=== PATIENT | male | born 1940 | race Caucasian/White ===

== ENCOUNTER 2018-10-25 07:18 | Emergency (ER) | payer MEDICARE, OTHER ==
[~2018-10-25] VITALS: Ht 185.4 cm; Wt 83.9 kg
[2018-10-25 07:20] VITALS: BP 86/54
[2018-10-25 08:00] LABS: Eosinophils # (auto) 0.4 uL; Hemoglobin 13.1 g/dL (13.5-17.5); Lymphocytes # (auto) 1.2 uL; Neutrophils # (auto) 6.3 uL
[2018-10-25 08:02] LABS: Basophils # (auto) 0.1 uL; Basophils % (auto) 0.7 % (0.0-2.0); Eosinophils % (auto) 4.6 % (0.0-7.0); Hematocrit 39.6 % (41.0-53.0); Lymphocytes % (auto) 13.8 % (10.0-50.0); Mean Corpuscular Hemoglobin 33.6 pg (28.0-32.0); Mean Corpuscular Hgb Conc. 33.1 g/dL (32.0-36.0); Mean Corpuscular Volume 101.4 fL (80.0-100.0); Monocytes # (auto) 0.8 uL; Monocytes % (auto) 9.4 % (0.0-12.0); Neutrophils % (auto) 71.5 % (37.0-80.0); Platelet Count (auto) 182 10^3/uL (140-450); Red Cell Distribution Width 16.7 % (11.8-14.3); White Blood Cell 8.7 10^3/uL (4.4-10.8)
[2018-10-25 08:11] LABS: Chloride 107 mmol/L (98-107); Potassium 4.7 mmol/L (3.5-5.1); Sodium 137 mmol/L (136-145)
[2018-10-25 08:14] LABS: Albumin 3.8 g/dL (3.4-5.0); Anion Gap 8 (5-15); Blood Urea Nitrogen 28 mg/dL (7-18); Calcium 8.6 mg/dL (8.5-10.1); Carbon Dioxide 22 mmol/L (21-32); Glucose 101 mg/dL (74-106); Magnesium 2.3 mg/dL (1.6-2.6)
[2018-10-25 08:20] LABS: Alanine Aminotransferase 18 U/L (16-61); Alkaline Phosphatase 76 U/L (45-117); Aspartate Aminotransferase 20 U/L (15-37); BUN/Creatinine Ratio 17.1; Bilirubin, Total 0.5 mg/dL (0.2-1.0); GFR African American 53 mL/min; GFR Non-African American 44 mL/min; Total Protein 7.7 g/dL (6.4-8.2)
[2018-10-25] MEDS ORDERED: NALOXONE HCL 0.4 MG/ML VIAL IV ONE (08:30)
[2018-10-25] MEDS ORDERED: FLUMAZENIL 0.1 MG/ML INJ 10ML MDV IV ONE ×2 (09:03→09:15)
== END 2018-10-25 10:59 | disposition home or self-care (01) ==
LOC: ER 07:21
DX: T50.991A Poisoning by other drugs, medicaments and biological substances, accidental (unintentional), initial encounter (principal); R53.1 Weakness; R42 Dizziness and giddiness; Z95.1 Presence of aortocoronary bypass graft; Z95.0 Presence of cardiac pacemaker; Y92.098 Other place in other non-institutional residence as the place of occurrence of the external cause
CPT/HCPCS: 36415; 70450; 71045; 80053; 83605; 83735; 84484; 85025; 87040; 96374; 96375; 99284; J2310

== ENCOUNTER 2018-12-21 16:48 | Emergency (ER) | payer MEDICARE, OTHER ==
[~2018-12-21] VITALS: Ht 185.4 cm; Wt 74.8 kg
[2018-12-21] MEDS ORDERED: ONDANSETRON HCL 4 MG/2 ML VIAL IV ONE (21:30)
[2018-12-21] MEDS ORDERED: MORPHINE SULFATE 4 MG/ML SYR/VIAL IV ONE (21:30)
[2018-12-21 21:49] LABS: Basophils # (auto) 0 uL; Basophils % (auto) 0.4 % (0.0-2.0); Eosinophils # (auto) 0.2 uL; Eosinophils % (auto) 3.7 % (0.0-7.0); Hematocrit 34.7 % (41.0-53.0); Hemoglobin 11.4 g/dL (13.5-17.5); Lymphocytes # (auto) 0.8 uL; Lymphocytes % (auto) 17.3 % (10.0-50.0); Mean Corpuscular Hemoglobin 32.7 pg (28.0-32.0); Mean Corpuscular Hgb Conc. 32.9 g/dL (32.0-36.0); Mean Corpuscular Volume 99.6 fL (80.0-100.0); Monocytes # (auto) 0.5 uL; Monocytes % (auto) 11.2 % (0.0-12.0); Neutrophils # (auto) 3.2 uL; Neutrophils % (auto) 67.4 % (37.0-80.0); Nucleated Red Blood Cells % 0.2 %; Platelet Count (auto) 83 10^3/uL (140-450); Red Blood Cells 3.49 10^6/uL (4.5-5.90); Red Cell Distribution Width 17.5 % (11.8-14.3); White Blood Cell 4.7 10^3/uL (4.4-10.8)
[2018-12-21 22:04] LABS: Alanine Aminotransferase 16 U/L (16-61); Albumin 3.6 g/dL (3.4-5.0); Anion Gap 9 (5-15); Aspartate Aminotransferase 14 U/L (15-37); BUN/Creatinine Ratio 18.8; Blood Urea Nitrogen 22 mg/dL (7-18); Calcium 8.3 mg/dL (8.5-10.1); Carbon Dioxide 23 mmol/L (21-32); Chloride 110 mmol/L (98-107); GFR African American 78 mL/min; GFR Non-African American 64 mL/min; Glucose 116 mg/dL (74-106); Potassium 3.6 mmol/L (3.5-5.1); Sodium 142 mmol/L (136-145)
[2018-12-21 22:07] LABS: Alkaline Phosphatase 106 U/L (45-117); Bilirubin, Total 0.5 mg/dL (0.2-1.0); Total Protein 7.5 g/dL (6.4-8.2)
[2018-12-22] MEDS ORDERED: MORPHINE SULF INJ 2 MG/ML SYRINGE 1ML IV ONE (03:00)
[2018-12-22 06:28] VITALS: BP 128/60
== END 2018-12-22 06:35 | disposition short-term general hospital (02) ==
LOC: ER 16:48
DX: S32.049A Unspecified fracture of fourth lumbar vertebra, initial encounter for closed fracture (principal); S32.039A Unspecified fracture of third lumbar vertebra, initial encounter for closed fracture; I25.2 Old myocardial infarction; Z95.1 Presence of aortocoronary bypass graft; Z95.0 Presence of cardiac pacemaker; X58.XXXA Exposure to other specified factors, initial encounter; Y93.89 Activity, other specified; Y99.8 Other external cause status; Y92.89 Other specified places as the place of occurrence of the external cause
CPT/HCPCS: 36415; 72070; 72100; 72128; 72131; 80053; 85025; 96374; 96375; 96376; 99285; J2270; J2405

== ENCOUNTER 2019-01-08 15:44 | Emergency (ER) | payer MEDICARE, OTHER ==
[~2019-01-08] VITALS: Ht 185.4 cm; Wt 79.4 kg
[2019-01-08] MEDS ORDERED: MORPHINE SULFATE 4 MG/ML SYR/VIAL IV ONE (16:30)
[2019-01-08] MEDS ORDERED: ONDANSETRON HCL 4 MG/2 ML VIAL IV ONE (16:30)
[2019-01-08 17:04] LABS: Basophils # (auto) 0 uL; Basophils % (auto) 0.2 % (0.0-2.0); Eosinophils # (auto) 0.1 uL; Eosinophils % (auto) 2.6 % (0.0-7.0); Hematocrit 31.4 % (41.0-53.0); Hemoglobin 10.1 g/dL (13.5-17.5); Lymphocytes # (auto) 0.5 uL; Lymphocytes % (auto) 14.7 % (10.0-50.0); Mean Corpuscular Hemoglobin 31.2 pg (28.0-32.0); Mean Corpuscular Hgb Conc. 32.3 g/dL (32.0-36.0); Mean Corpuscular Volume 96.5 fL (80.0-100.0); Monocytes # (auto) 0.6 uL; Monocytes % (auto) 15.6 % (0.0-12.0); Neutrophils # (auto) 2.5 uL; Neutrophils % (auto) 66.9 % (37.0-80.0); Nucleated Red Blood Cells % 0.1 %; Platelet Count (auto) 71 10^3/uL (140-450); Red Blood Cells 3.25 10^6/uL (4.5-5.90); Red Cell Distribution Width 18.4 % (11.8-14.3); White Blood Cell 3.7 10^3/uL (4.4-10.8)
[2019-01-08 17:20] LABS: Alanine Aminotransferase 12 U/L (16-61); Albumin 3.1 g/dL (3.4-5.0); Anion Gap 6 (5-15); Aspartate Aminotransferase 13 U/L (15-37); BUN/Creatinine Ratio 14.4; Blood Urea Nitrogen 16 mg/dL (7-18); Calcium 8.2 mg/dL (8.5-10.1); Carbon Dioxide 30 mmol/L (21-32); Chloride 105 mmol/L (98-107); GFR African American 83 mL/min; GFR Non-African American 68 mL/min; Glucose 107 mg/dL (74-106); Potassium 4.4 mmol/L (3.5-5.1); Sodium 141 mmol/L (136-145)
[2019-01-08 17:22] LABS: Alkaline Phosphatase 81 U/L (45-117); Bilirubin, Total 0.4 mg/dL (0.2-1.0); Total Protein 6.7 g/dL (6.4-8.2)
[2019-01-08 17:28] LABS: Magnesium 2.2 mg/dL (1.6-2.6)
[2019-01-08 18:33] LABS: Urine Bacteria NONE SEEN /hpf (None Seen); Urine Blood TRACE /uL (Negative); Urine Hyaline Cast FEW /lpf (0 - 2); Urine Mucus FEW (None Seen); Urine Specific Gravity 1.016 (1.001-1.035); Urine WBC 6 /hpf (0 - 3)
[2019-01-08 18:44] VITALS: BP 109/46
== END 2019-01-08 19:36 | disposition home or self-care (01) ==
LOC: ER 15:48
DX: M54.9 Dorsalgia, unspecified (principal); N39.0 Urinary tract infection, site not specified; J44.9 Chronic obstructive pulmonary disease, unspecified; I50.9 Heart failure, unspecified; I25.2 Old myocardial infarction; Z95.1 Presence of aortocoronary bypass graft; Z95.0 Presence of cardiac pacemaker
CPT/HCPCS: 36415; 80053; 81001; 83735; 84484; 85025; 93005; 94761; 96374; 96375; 99284; J2270; J2405

== ENCOUNTER 2019-05-03 10:09 | Inpatient (IN) | payer OTHER ==
[~2019-05-03] VITALS: Ht 185.4 cm; Wt 70.7 kg
[2019-05-03] MEDS ORDERED: ALBUTEROL SULF 2.5 MG/0.5ML(0.5%) NEB SOLN HHN ONE (10:30)
[2019-05-03] MEDS ORDERED: methylPREDNISolone SOD SUCC 125 MG/2 ML VL IV ONE (10:30)
[2019-05-03] MEDS ORDERED: IPRATROPIUM BROM 0.5 MG/2.5ML INH SOL HHN ONE (10:30)
[2019-05-03 11:25] LABS: Hemoglobin 11.1 g/dL (13.5-17.5); Mean Corpuscular Hemoglobin 28.9 pg (28.0-32.0)
[2019-05-03 11:26] LABS: Hematocrit 33.4 % (41.0-53.0); Mean Corpuscular Hgb Conc. 33.2 g/dL (32.0-36.0); Mean Corpuscular Volume 87.3 fL (80.0-100.0); Platelet Count (auto) 53 10^3/uL (140-450); Red Blood Cells 3.82 10^6/uL (4.5-5.90); White Blood Cell 3.8 10^3/uL (4.4-10.8)
[2019-05-03 11:32] LABS: Red Cell Distribution Width 21.2 % (11.8-14.3)
[2019-05-03 11:33] LABS: Basophils % (manual) 0 (0.0-2.0); Blast Cells 0; Metamyelocytes % 0; Myelocytes % 0; Promyelocytes % 0; Reactive Lymphocytes 0
[2019-05-03] MEDS ORDERED: HYDROcodone-ACET 10/325MG TAB PO ONE (11:45)
[2019-05-03 11:46] LABS: Alanine Aminotransferase 15 U/L (16-61); Albumin 3.1 g/dL (3.4-5.0); Anion Gap 6 (5-15); Aspartate Aminotransferase 19 U/L (15-37); BUN/Creatinine Ratio 15.2; Blood Urea Nitrogen 17 mg/dL (7-18); Calcium 8.2 mg/dL (8.5-10.1); Carbon Dioxide 28 mmol/L (21-32); Chloride 105 mmol/L (98-107); GFR African American 82 mL/min; GFR Non-African American 68 mL/min; Glucose 106 mg/dL (74-106); Magnesium 2.1 mg/dL (1.6-2.6); Potassium 4.5 mmol/L (3.5-5.1); Sodium 139 mmol/L (136-145)
[2019-05-03 11:51] LABS: Alkaline Phosphatase 81 U/L (45-117); Bilirubin, Total 0.4 mg/dL (0.2-1.0); Total Protein 7.5 g/dL (6.4-8.2)
[2019-05-03 11:59] LABS: Band Neutrophils % (manual) 2; Eosinophils % (manual) 2 (0-7); Lymphocytes % (manual) 13 (10.0-50.0); Monocytes % (manual) 14 (0-12)
[2019-05-03] MEDS ORDERED: ACETAMINOPHEN 325 MG TAB PO PRN (12:30)
[2019-05-03] MEDS ORDERED: ONDANSETRON HCL 4 MG/2 ML VIAL IV PRN (12:30)
[2019-05-03] MEDS ORDERED: ALBUTEROL SULF 2.5 MG/0.5ML(0.5%) NEB SOLN NEB PRN (12:30)
[2019-05-03] MEDS ORDERED: MORPHINE SULF INJ 2 MG/ML SYRINGE 1ML IV PRN (12:30)
[2019-05-03] MEDS: methylPREDNISolone SOD SUCC 40 MG/ML VL IV SCH ×2 (15:38→21:13)
--- NOTE | 2019-05-03 17:17 | NUR ---
Telemetry admit from ER LAURE MARTINEZ admitted to Telemetry unit after SBAR received. Patient oriented to CHERYL GIRON RN primary RN, unit, room, bed, and unit policies regarding patient care and visiting hours. Patient now on continuous telemetry monitoring, tele box # 31 and telemetry reading on arrival to unit is sinus rhythm 91 . Patient has and IV 20g to left AC. Patient placed on bedside oxygen 2L NC, weighed by bed scale and encouraged to call for assistance. All questions and concerns addressed, patient verbalized understanding. Bed alarm on for safety. Bed in low and locked position, call light within reach. Will continue to monitor Q1hour and PRN.
--- NOTE | 2019-05-03 18:42 | NUR ---
Patient moved to room 222A with all personal belongings
[2019-05-03] MEDS ORDERED: GABA300C10 PO ×2 (18:47→20:36)
[2019-05-03] MEDS ORDERED: CHOL20007 PO (18:47)
[2019-05-03] MEDS ORDERED: CLOP75TA41 PO (18:47)
[2019-05-03] MEDS ORDERED: SERT-376 PO (18:47)
[2019-05-03] MEDS ORDERED: ALPR0.5T7 PO ×2 (18:47→20:41)
[2019-05-03] MEDS ORDERED: LEVO25TA6 PO (18:47)
[2019-05-03] MEDS ORDERED: ATOR10TA52 PO (18:47)
[2019-05-03] MEDS ORDERED: RANO500T2 PO ×2 (18:47→20:41)
[2019-05-03] MEDS ORDERED: CYCL1TAB18 PO ×2 (18:47→20:36)
[2019-05-03] MEDS ORDERED: ASPI-404 PO (18:47)
--- NOTE | 2019-05-03 19:25 | NUR ---
Closing Note Report given to caustic cresylate shift superintendent RN. Patient awake, alert and oriented x4. No signs or symptoms of distress noted at this time.
[2019-05-03] MEDS ORDERED: HYDR-4833 PO (20:36)
[2019-05-03] MEDS ORDERED: SERT-274 PO (20:41)
[2019-05-03] MEDS ORDERED: CYCLOBENZAPRINE HCL 10 MG TAB PO PRN (20:45)
[2019-05-03] MEDS: GABAPENTIN 300 MG CAP PO SCH (21:12)
[2019-05-03] MEDS: ALPRAZolam 0.5 MG TAB PO PRN (21:12)
[2019-05-03] MEDS: ATORVASTATIN 20 MG TAB PO SCH (21:12)
[2019-05-03] MEDS: RANOLAZINE ER 500 MG TAB PO SCH (21:12)
--- NOTE | 2019-05-03 22:00 | NUR ---
Spoke to Dr. Grace and telephone order received to continue patient home medications. Medication reconciliation done and ordered home medications.
[2019-05-03 22:13] VITALS: BP 110/57
[2019-05-03 22:14] VITALS: BP 120/51
[2019-05-04 05:21] VITALS: BP 121/62
[2019-05-04] MEDS: methylPREDNISolone SOD SUCC 40 MG/ML VL IV SCH ×3 (05:27→22:14)
[2019-05-04] MEDS: LEVOTHYROXINE SODIUM 25 MCG TAB PO SCH (05:28)
[2019-05-04 06:35] LABS: Basophils # (auto) 0 uL; Eosinophils # (auto) 0 uL; Lymphocytes # (auto) 0.3 uL; Monocytes # (auto) 0.6 uL; Nucleated Red Blood Cells % 0.1 %
[2019-05-04 06:39] LABS: Basophils % (auto) 0.3 % (0.0-2.0); Eosinophils % (auto) 0.1 % (0.0-7.0); Hematocrit 31.5 % (41.0-53.0); Hemoglobin 10.5 g/dL (13.5-17.5); Mean Corpuscular Hemoglobin 28.8 pg (28.0-32.0); Mean Corpuscular Hgb Conc. 33.2 g/dL (32.0-36.0); Mean Corpuscular Volume 86.6 fL (80.0-100.0); Monocytes % (auto) 13.6 % (0.0-12.0); Neutrophils # (auto) 3.7 uL; Platelet Count (auto) 59 10^3/uL (140-450); Red Blood Cells 3.64 10^6/uL (4.5-5.90); Red Cell Distribution Width 20.4 % (11.8-14.3); White Blood Cell 4.6 10^3/uL (4.4-10.8)
[2019-05-04 06:58] LABS: Albumin 3.1 g/dL (3.4-5.0); BUN/Creatinine Ratio 22.1; Magnesium 2.3 mg/dL (1.6-2.6); Potassium 5.1 mmol/L (3.5-5.1)
[2019-05-04 07:01] LABS: Bilirubin, Total 0.4 mg/dL (0.2-1.0)
--- NOTE | 2019-05-04 07:20 | NUR ---
Opening Note Received report from shiftman RN. Patient is resting in bed, no signs or symptoms of distress noted at this time. Patient is on room air, respirations even and unlabored. Patient denies pain at this time. Reviewed plan of care with. Patient verbalized understanding. Bed in low and locked position, call light within reach. Will continue to monitor Q1 hour and PRN.
--- NOTE | 2019-05-04 08:36 | NUR ---
RT NOTE: WENT TO PTS ROOM TO ASSESS FOR PRN BREATHING TX, HR 90, RR 16, SPO2 99% ON RA. NO S/S OF SOB. NO INDICATION FOR TX AT THIS TIME. WILL CONTINUE TO MONITOR PT.
[2019-05-04 09:00] VITALS: BP 125/72
[2019-05-04] MEDS ORDERED: SERTRALINE HCL 50 MG TAB PO SCH (10:00)
[2019-05-04] MEDS: CLOPIDOGREL BISULFATE 75 MG TAB PO SCH (10:01)
[2019-05-04] MEDS: ASPirin-EC 81 mg tab PO SCH (10:01)
[2019-05-04] MEDS: RANOLAZINE ER 500 MG TAB PO SCH ×2 (10:02→22:15)
[2019-05-04] MEDS: LEVOFLOXACIN 500 MG TAB PO SCH (10:02)
[2019-05-04] MEDS: CHOLECALCIFEROL (VITD3) 1,000 UNIT TAB PO SCH (10:02)
--- NOTE | 2019-05-04 12:17 | NUR ---
Dr. Grace at bedside Discussing plan of care with patient. New orders received for PT Evaluation, and to assess oxygen saturation on room air, while ambulating. Will implement new orders. Will continue to monitor Q1 hour and PRN.
[2019-05-04 13:00] VITALS: BP 128/69
--- NOTE | 2019-05-04 13:00 | NUR ---
Patient up to chair Full linen change completed. Patient assisted back to bed. Patient tolerated well. Will continue to monitor Q1 hour and PRN.
[2019-05-04 17:00] VITALS: BP 111/62
--- NOTE | 2019-05-04 17:20 | NUR ---
Pain Patient complains of generalized pain in back and shoulder, and is requesting pain medications. Will medicate with PRN medications. Will continue to monitor Q1 hour and PRN.
[2019-05-04] MEDS: HYDROcodone-ACET 10/325MG TAB PO PRN (17:21)
--- NOTE | 2019-05-04 18:52 | NUR ---
PT ASSESSED FOR PRN TX. PT RESTING WITH NO ACUTE DISTRESS NOTED, PT DENIES SOB. TX IS NOT INDICATED AT THIS TIME. PT IS AWARE TO PAGE IF TX NEEDED. HR 93 RR 20 POX 98 ON 2 LPM VIA NC. B/S CLEAR.
--- NOTE | 2019-05-04 19:05 | NUR ---
Closing Note Report given to operation shift supervisor RN. Patient awake, alert and oriented x4. No signs or symptoms of distress noted at this time.
[2019-05-04 20:28] VITALS: BP 115/58
[2019-05-04 22:00] VITALS: BP 115/58
[2019-05-04] MEDS: ALPRAZolam 0.5 MG TAB PO PRN (22:14)
[2019-05-04] MEDS: ATORVASTATIN 20 MG TAB PO SCH (22:14)
[2019-05-04] MEDS: GABAPENTIN 300 MG CAP PO SCH (22:14)
[2019-05-05 04:54] VITALS: BP 132/69
[2019-05-05] MEDS: LEVOTHYROXINE SODIUM 25 MCG TAB PO SCH (06:13)
[2019-05-05] MEDS: methylPREDNISolone SOD SUCC 40 MG/ML VL IV SCH ×3 (06:13→21:32)
--- NOTE | 2019-05-05 07:30 | NUR ---
Opening Note Received report from warehouse worker 2nd shift RN. Patient is resting in bed, no signs or symptoms of distress noted at this time. Patient is on 2L NC, respirations even and unlabored. Patient denies pain at this time. Reviewed plan of care with. Patient verbalized understanding. Bed in low and locked position, call light within reach. Will continue to monitor Q1 hour and PRN.
[2019-05-05 09:00] VITALS: BP 134/75
[2019-05-05] MEDS: ASPirin-EC 81 mg tab PO SCH (09:24)
[2019-05-05] MEDS: CHOLECALCIFEROL (VITD3) 1,000 UNIT TAB PO SCH (09:24)
[2019-05-05] MEDS: CLOPIDOGREL BISULFATE 75 MG TAB PO SCH (09:24)
[2019-05-05] MEDS: RANOLAZINE ER 500 MG TAB PO SCH ×2 (09:24→21:31)
[2019-05-05] MEDS: LEVOFLOXACIN 500 MG TAB PO SCH (09:25)
[2019-05-05] MEDS: IPRATROPIUM BROM 0.5 MG/2.5ML INH SOL NEB PRN ×2 (09:31→22:10)
[2019-05-05 09:36] LABS: White Blood Cell 4.2 10^3/uL (4.4-10.8)
[2019-05-05 09:37] LABS: Hematocrit 33.6 % (41.0-53.0); Hemoglobin 10.9 g/dL (13.5-17.5); Mean Corpuscular Hemoglobin 28.5 pg (28.0-32.0); Mean Corpuscular Hgb Conc. 32.4 g/dL (32.0-36.0); Mean Corpuscular Volume 87.9 fL (80.0-100.0); Platelet Count (auto) 46 10^3/uL (140-450); Red Blood Cells 3.82 10^6/uL (4.5-5.90)
[2019-05-05 09:43] LABS: Red Cell Distribution Width 21.7 % (11.8-14.3)
[2019-05-05 09:44] LABS: Basophils % (manual) 0 (0.0-2.0); Blast Cells 0; Eosinophils % (manual) 0 (0-7); Metamyelocytes % 0; Myelocytes % 0; Promyelocytes % 0; Reactive Lymphocytes 0
[2019-05-05 10:01] LABS: BUN/Creatinine Ratio 28.6; Calcium 8.2 mg/dL (8.5-10.1); Magnesium 2.4 mg/dL (1.6-2.6); Potassium 4.5 mmol/L (3.5-5.1)
[2019-05-05 10:06] LABS: Band Neutrophils % (manual) 3; Lymphocytes % (manual) 7 (10.0-50.0); Monocytes % (manual) 9 (0-12)
--- NOTE | 2019-05-05 10:55 | NUR ---
PT at bedside Ambulated patient with PT. Patient oxygen saturation assessed on room air while ambulating. Patient oxygen saturation 83%. Will notify Dr. Grace. Patient assisted back to bed. Placed back on 2L NC. Will continue to monitor Q1 hour and PRN.
--- NOTE | 2019-05-05 11:10 | NUR ---
Spoke with Dr. Grace Updated Doctor on patient s oxygen saturation of 83% on room air while ambulating. New orders received for chest CT, and home oxygen 2L NC. Will implement new orders. Will continue to monitor Q1 hour and PRN.
[2019-05-05] MEDS ORDERED: IOHEXOL 350 MG/ML 100ML IJ ONE (11:16)
--- NOTE | 2019-05-05 12:40 | NUR ---
Spoke with Aaron Regarding patients social service consult for home oxygen. States patient needs to have ABG on room are completed prior to home oxygen arranged. Will page Dr. Grace to update.
--- NOTE | 2019-05-05 12:43 | NUR ---
Patient taken down of CT
[2019-05-05 13:00] VITALS: BP 110/59
--- NOTE | 2019-05-05 13:30 | NUR ---
Patient back to room
--- NOTE | 2019-05-05 15:39 | NUR ---
Hair Grace regarding patients home health, and chest CT results. Awaiting call back.
[2019-05-05 17:00] VITALS: BP_SYST 115; BP_SYST 130; BP_DIAS 68; BP_DIAS 85
[2019-05-05] MEDS: HYDROcodone-ACET 10/325MG TAB PO PRN (19:10)
--- NOTE | 2019-05-05 19:10 | NUR ---
Pain Patient complains of generalized pain in back 8/10, and is requesting pain medications. Will medicate with PRN medications. Will continue to monitor Q1 hour and PRN.
--- NOTE | 2019-05-05 19:22 | NUR ---
Closing Note Report given to [facility] shift lead RN. No signs or symptoms of distress noted at this time.
--- NOTE | 2019-05-05 19:40 | NUR ---
Opening Shift Note Assumed care of patient, awake and alert. No S/S of distress/SOB or pain. Instructed on POC and to call for assist PRN, patient verbalized understanding, call light within reach, will continue to monitor for changes Q1hr and PRN.
[2019-05-05] MEDS: ATORVASTATIN 20 MG TAB PO SCH (21:31)
[2019-05-05] MEDS: GABAPENTIN 300 MG CAP PO SCH (21:31)
[2019-05-05] MEDS: ALPRAZolam 0.5 MG TAB PO PRN (21:31)
[2019-05-05 22:00] VITALS: BP 140/67
[2019-05-05] MEDS ORDERED: SERTRALINE HCL 50 MG TAB PO SCH ×2 (22:00)
[2019-05-06] MEDS: HYDROcodone-ACET 10/325MG TAB PO PRN (01:56)
[2019-05-06 05:00] VITALS: BP 108/74
--- NOTE | 2019-05-06 05:54 | NUR ---
Respiratory note: HR 71, RR 16, SPO2 97% ON 2 L NC, BS CLEAR. PRN MED NEB TX NOT INDICATED AT THIS TIME.NO SIGNS OR SYMPTOMS OF RESPIRATORY DISTRESS NOTED AT THIS TIME. PT INFORMED TO HIT CALL BUTTON IF FEELING SOB OR WHEEZING.
[2019-05-06] MEDS: methylPREDNISolone SOD SUCC 40 MG/ML VL IV SCH ×2 (06:40→14:41)
[2019-05-06] MEDS: LEVOTHYROXINE SODIUM 25 MCG TAB PO SCH (06:40)
[2019-05-06 08:00] VITALS: BP 125/59
--- NOTE | 2019-05-06 08:45 | NUR ---
Respiratory note: ARRIVED IN PT ROOM FOR RA ABG. PT SPO2 98% ON RA. WILL LEAVE PT OFF OXYGEN AND CONTINUE TO MONITOR PT SPO2 AND WILL DRAW ABG WHEN SPO2 IS LOWER. RN MADE AWARE.
[2019-05-06 09:00] VITALS: BP 125/59
--- NOTE | 2019-05-06 09:20 | NUR ---
PHYSICAL THERAPY AND RESPIRATORY AT BEDSIDE FOR AMBULATION AND ABG ON RA, CONT CARE
[2019-05-06] MEDS: ASPirin-EC 81 mg tab PO SCH (09:53)
[2019-05-06] MEDS: LEVOFLOXACIN 500 MG TAB PO SCH (09:53)
[2019-05-06] MEDS: CHOLECALCIFEROL (VITD3) 1,000 UNIT TAB PO SCH (09:53)
[2019-05-06] MEDS: CLOPIDOGREL BISULFATE 75 MG TAB PO SCH (09:53)
[2019-05-06] MEDS: RANOLAZINE ER 500 MG TAB PO SCH (09:53)
[2019-05-06 13:00] VITALS: BP 134/72
--- NOTE | 2019-05-06 13:52 | NUR ---
AT BEDSIDE DR CA AT BEDSIDE, DISCUSSING POC, INCLUDING PENDING HOME O2 ARRANGEMENTS, MD WAS INFORMED OF ABG RESULTS, CONT CARE
--- NOTE | 2019-05-06 16:06 | NUR ---
Assessment Pt is a 78 yr old alert and oriented male. Prior to admit, pt lives with his girlfriend Clarita, who is his caregiver and emergency contact at [phone]. Pt states that he is able to ambulate with a walker. Pt uses a C-pap and shower chair in the home. Pt's girlfriend cooks, cleans, and sometimes helps with bathing and medication. Pt stated that he is planning to d/c with home 02. Pt is [facility] 60%. GIOVANNI educated pt on the aid and attendance program through the [facility]. Pt interested in looking into caregiving services through the [facility]. GIOVANNI referred pt to [facility] to educate the pt on the aid and assistance program. Pt stated that he was admitted to the hospital due to sever back and shoulder pain and he was extremely weak and SOB. Pt receives income. Pt stated that he has an advanced directive but is unsure if he has one on file with us. Pt plans to d/c home upon medical clearance. pt's girlfriend, Clarita, will transport home. Addendum: 05/06/19 at 1620 by BERHANE ESTRADA Amended: Links added.
--- NOTE | 2019-05-06 16:39 | NUR ---
D/C Planning Per consult for home health for safety evaluation and home O2. Contact [facility] Ph:) ) faxed medical records. Per Haydee from [facility] pt has been accepted and service to start within 48hrs upon d/c day. Contact Ph:) Fax:) faxed medical records. Per Betty from referral has been received and portable oxygen will be deliver to bedside and concentrate oxygen to be deliver at home. Contact [facility] Ph:) Fax:) faxed medical records requesting authorization. Per SHERRI Liz from [facility] authorization will be given to [facility] and . Informed MICHAEL Franklin. Addendum: 05/06/19 at 1644 by JOSE ROBERTO JAQUEZ Amended: Links added.
[2019-05-06 17:00] VITALS: BP 121/49
[2019-05-06 17:35] VITALS: BP 121/49
--- NOTE | 2019-05-06 17:40 | NUR ---
FOLLOWED UP ON OXYGEN, PENDING DC CALLED [facility], SPOKE WITH SANTI, STATES " WE JUST RECEIVED THE AUTH", STATES HE WILL CALL ME BACK FOR ESTIMATION OF DELIVERY TIME, PATIENT AND SPOUSE WERE UPDATED
--- NOTE | 2019-05-06 18:30 | NUR ---
FOLLOW UP ON O2 DELIVERY SPOKE WITH JOSUE, STATES O2 IS IN ROUTE AND CONCENTRATOR WILL BE DELIVERED SOON, CONT CARE
--- NOTE | 2019-05-06 18:58 | NUR ---
DISCHARGE Discharge instructions given as ordered. Encourage to follow up with PMD as instructed. [facility] All questions and concerns addressed. Patient verbalized understanding. Medication reconciliation form completed and copy given to patient. Home medications held in Pharmacy returned to patient. Oxygen was delivered at bedside. IV removed with catheter intact, pressure dressing applied. Telemetry unit returned to ICU. Patient taken to vehicle via wheelchair with all personal belongings, accompanied by staff and family member. No distress noted at time of departure.
== END 2019-05-06 18:57 | disposition home health service (06) | DRG 191 ==
LOC: ER 10:12 → TELE 10:13 → TELE-CENTR 17:36
PROVIDERS: ADMIT Internal Medicine; ATTEND Internal Medicine
DX: J44.1 Chronic obstructive pulmonary disease with (acute) exacerbation (principal); C18.9 Malignant neoplasm of colon, unspecified; G89.29 Other chronic pain; M54.9 Dorsalgia, unspecified; I25.10 Atherosclerotic heart disease of native coronary artery without angina pectoris; Z85.048 Personal history of other malignant neoplasm of rectum, rectosigmoid junction, and anus; Z87.891 Personal history of nicotine dependence; Z92.21 Personal history of antineoplastic chemotherapy; Z95.1 Presence of aortocoronary bypass graft
CPT/HCPCS: 36415; 36600; 70450; 71045; 71275; 80048; 80053; 82805; 83605; 83735; 83880; 84484; 85007; 85025; 85027; 87040; 93005; 94640; 94644; 94761; 96374; 97116; 97163; 97530; G0378

== ENCOUNTER 2019-11-04 15:20 | Inpatient (IN) | payer OTHER ==
[~2019-11-04] VITALS: Ht 185.4 cm; Wt 56.7 kg
[2019-11-04] VITALS (13 sets, daily range): BP systolic 91–110; BP diastolic 36–57
[~2019-11-04 15:20] MED LIST: ALPR0.5T7 PO; ASPI-404 PO; ATOR10TA52 PO; CHOL20007 PO; CLOP75TA41 PO; CYCL1TAB18 PO; DOX100T PO; FER325T PO; FOLI1TAB6 PO; GAB100C PO; GABA300C10 PO; HYDR-4833 PO; LEVO25TA6 PO; RANO500T2 PO; SERT-274 PO
[2019-11-04] MEDS ORDERED: NOREPINEPHRINE 8 MG/250ML KIT 250 ML IV ONE (15:34)
[2019-11-04] MEDS: MIDAZOLAM DRIP 50 mg/50mL 50 ML IV SCH (15:40)
[2019-11-04] MEDS: NOREPINEPHRINE 8 MG/250ML KIT 250 ML IV SCH (15:40)
[2019-11-04] MEDS ORDERED: SODIUM CHLORIDE 0.9% 1,000 ML IV ONE ×2 (15:57→17:00)
[2019-11-04] MEDS ORDERED: AZITHROMYCIN 500MG/ 250ML 250 ML IV ONE (16:00)
[2019-11-04] MEDS ORDERED: cefTRIAXone 1GM/50ML D5W 50 ML IV ONE (16:00)
[2019-11-04 16:18] LABS: Red Blood Cells 3.32 10^6/uL (4.5-5.90)
[2019-11-04 16:20] LABS: Hematocrit 30.9 % (41.0-53.0); Hemoglobin 9.4 g/dL (13.5-17.5); Mean Corpuscular Hemoglobin 28.4 pg (28.0-32.0); Mean Corpuscular Hgb Conc. 30.5 g/dL (32.0-36.0); Platelet Count (auto) 37 10^3/uL (140-450); White Blood Cell 6.8 10^3/uL (4.4-10.8)
[2019-11-04 16:28] LABS: Albumin 2.4 g/dL (3.4-5.0); BUN/Creatinine Ratio 18.8; Calcium 8.2 mg/dL (8.5-10.1); INR 1.58 (0.9-1.15); Partial Thromboplastin Time 34.5 sec (23.64-32.05); Potassium 5.2 mmol/L (3.5-5.1)
[2019-11-04 16:29] LABS: Basophils % (manual) 0 (0.0-2.0); Blast Cells 0; Eosinophils % (manual) 0 (0-7); Myelocytes % 0; Promyelocytes % 0
[2019-11-04 16:33] LABS: Bilirubin, Total 0.5 mg/dL (0.2-1.0); Total Protein 6.5 g/dL (6.4-8.2)
[2019-11-04 17:19] LABS: Band Neutrophils % (manual) 5; Lymphocytes % (manual) 20 (10.0-50.0); Metamyelocytes % 1; Monocytes % (manual) 8 (0-12); Reactive Lymphocytes 1
[2019-11-04] MEDS ORDERED: ALBUTEROL SULF 2.5 MG/0.5ML(0.5%) NEB SOLN NEB ONE (18:15)
[2019-11-04] MEDS ORDERED: ACETAMINOPHEN 500 MG TAB PO PRN (18:15)
[2019-11-04] MEDS ORDERED: NITROGLYCERIN 0.4 MG SL TAB SL PRN (18:15)
[2019-11-04] MEDS ORDERED: MORPHINE SULF INJ 2 MG/ML SYRINGE 1ML IV PRN (18:15)
[2019-11-04] MEDS ORDERED: DOXYCYCLINE 100MG/250ML 250 ML IV SCH (19:30)
[2019-11-04] MEDS ORDERED: ALBUMIN 5% 250 ML IV ONE (20:45)
[2019-11-04] MEDS: fentaNYL Drip 2500mCg/250mlNS 250 ML IV SCH (21:36)
[2019-11-04] MEDS ORDERED: fentaNYL Drip 2500mCg/250mlNS 250 ML IV ONE (21:39)
[2019-11-04] MEDS ORDERED: VASOPRESSIN 20 UNIT/ML ONE (21:39)
[2019-11-04] MEDS: OSELTAMIVIR 30 MG CAP PO SCH (23:30)
[2019-11-05] VITALS (91 sets, daily range): BP systolic 86–138; BP diastolic 28–82
[2019-11-05 00:38] LABS: BUN/Creatinine Ratio 28.1; Calcium 7.8 mg/dL (8.5-10.1); Potassium 3.8 mmol/L (3.5-5.1)
[2019-11-05] MEDS: PIPERACILLIN-TAZOB 2.25GM 50 ML IV SCH ×4 (00:45→18:05)
[2019-11-05 05:54] LABS: Basophils # (auto) 0 10 ^3/uL (0-0.2); Eosinophils # (auto) 0 10 ^3/uL (0-0.8); Hemoglobin 9.5 g/dL (13.5-17.5); Lymphocytes # (auto) 0.4 10 ^3/uL (0.4-5.4); Neutrophils # (auto) 8.4 10 ^3/uL (1.6-8.6); Nucleated Red Blood Cells % 0.3 %; Platelet Count (auto) 21 10^3/uL (140-450); Red Blood Cells 3.35 10^6/uL (4.5-5.90)
[2019-11-05 05:59] LABS: Basophils % (auto) 0.2 % (0.0-2.0); Eosinophils % (auto) 0.1 % (0.0-7.0); Hematocrit 29.2 % (41.0-53.0); Lymphocytes % (auto) 4.3 % (10.0-50.0); Mean Corpuscular Hemoglobin 28.3 pg (28.0-32.0); Mean Corpuscular Hgb Conc. 32.4 g/dL (32.0-36.0); Mean Corpuscular Volume 87.3 fL (80.0-100.0); Monocytes # (auto) 0.8 10 ^3/uL (0-1.3); Monocytes % (auto) 8.3 % (0.0-12.0); Neutrophils % (auto) 87.1 % (37.0-80.0); White Blood Cell 9.7 10^3/uL (4.4-10.8)
[2019-11-05 06:07] LABS: Albumin 2.5 g/dL (3.4-5.0); Calcium 7.7 mg/dL (8.5-10.1); Potassium 3.6 mmol/L (3.5-5.1)
[2019-11-05 06:10] LABS: BUN/Creatinine Ratio 27.4; Total Protein 6.4 g/dL (6.4-8.2)
[2019-11-05 06:18] LABS: Red Cell Distribution Width 21.4 % (11.8-14.3)
[2019-11-05] MEDS: NOREPINEPHRINE 8 MG/250ML KIT 250 ML IV SCH ×2 (07:32→16:00)
[2019-11-05] MEDS ORDERED: ENOXAPARIN SOD 40 MG/0.4 ML SYRINGE SC SCH (10:00)
[2019-11-05] MEDS: MIDAZOLAM DRIP 50 mg/50mL 50 ML IV SCH (11:03)
[2019-11-05] MEDS: THIAMINE 100mg/ml INJ (200mg/2ml VIAL) IV SCH (11:14)
[2019-11-05] MEDS: FOLIC ACID 1 MG TAB PO SCH (11:15)
[2019-11-05] MEDS: DOXYCYCLINE 100MG/250ML 250 ML IV SCH ×3 (11:15→22:00)
[2019-11-05] MEDS: ZINC SULFATE 220mg CAP or TAB PO SCH (11:15)
[2019-11-05] MEDS: OSELTAMIVIR 30 MG CAP PO SCH ×2 (11:15→22:00)
[2019-11-05] MEDS: PANTOPRAZOLE 40 MG/10 ML VIAL INJ IV SCH (11:15)
[2019-11-05] MEDS: ASCORBIC ACID 1,000 MG TAB PO SCH (11:15)
[2019-11-05] MEDS: CHOLECALCIFEROL (VITD3) 1,000IU=25mCg TAB PO SCH (11:16)
[2019-11-05] MEDS: VASOPRESSIN 50 UNITS in D5W 5% 247.5 ML IV SCH ×2 (16:00→21:45)
[2019-11-05] MEDS ORDERED: SODIUM BICARBONATE 8.4% INJ 50ML SYRINGE IV ONE (19:08)
[2019-11-05] MEDS: fentaNYL Drip 2500mCg/250mlNS 250 ML IV SCH (21:36)
[2019-11-05] MEDS ORDERED: ATORVASTATIN 20 MG TAB PO SCH (22:00)
[2019-11-06] VITALS (50 sets, daily range): BP systolic 86–121; BP diastolic 25–58
[2019-11-06 00:10] LABS: Basophils # (auto) 0 10 ^3/uL (0-0.2); Eosinophils # (auto) 0 10 ^3/uL (0-0.8); Hemoglobin 8.7 g/dL (13.5-17.5); Monocytes # (auto) 0.9 10 ^3/uL (0-1.3)
[2019-11-06 00:11] LABS: Basophils % (auto) 0.3 % (0.0-2.0); Eosinophils % (auto) 0.3 % (0.0-7.0); Hematocrit 27.3 % (41.0-53.0); Lymphocytes # (auto) 0.6 10 ^3/uL (0.4-5.4); Lymphocytes % (auto) 6.8 % (10.0-50.0); Mean Corpuscular Volume 87.6 fL (80.0-100.0); Monocytes % (auto) 10.8 % (0.0-12.0); Neutrophils # (auto) 7.1 10 ^3/uL (1.6-8.6); Neutrophils % (auto) 81.8 % (37.0-80.0); Nucleated Red Blood Cells % 0.2 %; Red Blood Cells 3.11 10^6/uL (4.5-5.90); White Blood Cell 8.6 10^3/uL (4.4-10.8)
[2019-11-06 00:14] LABS: Red Cell Distribution Width 21.5 % (11.8-14.3)
[2019-11-06 00:15] LABS: Platelet Count (auto) 18 10^3/uL (140-450)
[2019-11-06 00:25] LABS: INR 1.75 (0.9-1.15); Partial Thromboplastin Time 44.9 sec (23.64-32.05)
[2019-11-06 00:28] LABS: Albumin 2.1 g/dL (3.4-5.0); BUN/Creatinine Ratio 25.3; Calcium 7.2 mg/dL (8.5-10.1); Magnesium 1.4 mg/dL (1.6-2.6); Potassium 3.8 mmol/L (3.5-5.1)
[2019-11-06 00:33] LABS: Bilirubin, Total 0.8 mg/dL (0.2-1.0)
[2019-11-06 01:01] LABS: Bilirubin, Direct 0.3 mg/dL (0-0.2)
[2019-11-06] MEDS: MAGNESIUM SULFATE 1GM/100ML 100 ML IV SCH ×3 (04:00→10:01)
[2019-11-06 04:38] LABS: Basophils # (auto) 0 10 ^3/uL (0-0.2); Basophils % (auto) 0.2 % (0.0-2.0); Eosinophils # (auto) 0 10 ^3/uL (0-0.8); Nucleated Red Blood Cells % 0.2 %; White Blood Cell 8.9 10^3/uL (4.4-10.8)
[2019-11-06 04:40] LABS: Eosinophils % (auto) 0.5 % (0.0-7.0); Hematocrit 26.3 % (41.0-53.0); Hemoglobin 8.6 g/dL (13.5-17.5); Lymphocytes # (auto) 0.6 10 ^3/uL (0.4-5.4); Lymphocytes % (auto) 7.3 % (10.0-50.0); Mean Corpuscular Hemoglobin 28.3 pg (28.0-32.0); Mean Corpuscular Hgb Conc. 32.7 g/dL (32.0-36.0); Mean Corpuscular Volume 86.7 fL (80.0-100.0); Monocytes % (auto) 11.2 % (0.0-12.0); Neutrophils # (auto) 7.2 10 ^3/uL (1.6-8.6); Neutrophils % (auto) 80.8 % (37.0-80.0); Red Blood Cells 3.03 10^6/uL (4.5-5.90)
[2019-11-06 04:51] LABS: Red Cell Distribution Width 21.4 % (11.8-14.3)
[2019-11-06 04:52] LABS: INR 1.66 (0.9-1.15); Partial Thromboplastin Time 45.7 sec (23.64-32.05); Platelet Count (auto) 20 10^3/uL (140-450)
[2019-11-06 04:55] LABS: Albumin 2.1 g/dL (3.4-5.0); Bilirubin, Direct 0.3 mg/dL (0-0.2); Calcium 7.2 mg/dL (8.5-10.1); Magnesium 1.8 mg/dL (1.6-2.6); Potassium 3.9 mmol/L (3.5-5.1)
[2019-11-06 04:58] LABS: BUN/Creatinine Ratio 26.5; Bilirubin, Total 0.7 mg/dL (0.2-1.0)
[2019-11-06] MEDS: PIPERACILLIN-TAZOB 2.25GM 50 ML IV SCH ×2 (06:00)
[2019-11-06] MEDS ORDERED: LEVOTHYROXINE SODIUM 50 MCG TAB PO SCH (07:00)
[2019-11-06] MEDS ORDERED: FERROUS SULFATE 325 MG TAB PO SCH (08:00)
[2019-11-06] MEDS ORDERED: SERTRALINE HCL 50 MG TAB PO SCH (10:00)
[2019-11-06] MEDS: ZINC SULFATE 220mg CAP or TAB PO SCH (10:00)
[2019-11-06] MEDS: CHOLECALCIFEROL (VITD3) 1,000IU=25mCg TAB PO SCH (10:00)
[2019-11-06] MEDS ORDERED: CLOPIDOGREL BISULFATE 75 MG TAB PO SCH (10:00)
[2019-11-06] MEDS ORDERED: ASPirin-EC 81 mg tab PO SCH (10:00)
[2019-11-06] MEDS: PANTOPRAZOLE 40 MG/10 ML VIAL INJ IV SCH (10:01)
[2019-11-06] MEDS: DOXYCYCLINE 100MG/250ML 250 ML IV SCH (10:02)
[2019-11-06] MEDS: FOLIC ACID 1 MG TAB PO SCH (10:02)
[2019-11-06] MEDS: THIAMINE 100mg/ml INJ (200mg/2ml VIAL) IV SCH (10:02)
[2019-11-06] MEDS: ASCORBIC ACID 1,000 MG TAB PO SCH (10:04)
[2019-11-06] MEDS: OSELTAMIVIR 30 MG CAP PO SCH (10:09)
[2019-11-06] MEDS ORDERED: HYDROCORTISONE SOD SUCC 100 MG/2ML INJ VIAL IV SCH (12:00)
[2019-11-06] MEDS ORDERED: LORazepam 2MG/ML-1ML VIAL IV PRN (14:45)
[2019-11-06] MEDS ORDERED: LORazepam 2MG/ML-1ML VIAL IM ONE (14:45)
[2019-11-06] MEDS ORDERED: MORPHINE SULF INJ 2 MG/ML SYRINGE 1ML IV PRN (14:45)
[2019-11-06] MEDS ORDERED: MORPHINE SULF INJ 2 MG/ML SYRINGE 1ML IM ONE (14:45)
[2019-11-06] MEDS ORDERED: ONDANSETRON HCL 4 MG/2 ML VIAL IV PRN (14:45)
[2019-11-06] MEDS ORDERED: ATORVASTATIN 20 MG TAB PO SCH (22:00)
== END 2019-11-06 19:15 | disposition expired | DRG 208 ==
LOC: EDBD 15:20 → ER 15:20 → EDUNIT# 15:20 → OVERFLOW 15:21 → ICU WEST 21:11
PROVIDERS: ADMIT Nurse Practitioner Acute Care; ATTEND Hospitalist
PROC: 5A1945Z Respiratory Ventilation, 24-96 Consecutive Hours (ICD-10-PCS; principal; 2019-11-04)
PROC: 0BH17EZ Insertion of Endotracheal Airway into Trachea, Via Natural or Artificial Opening (ICD-10-PCS; 2019-11-04)
DX: J96.21 Acute and chronic respiratory failure with hypoxia (principal); G92 Toxic encephalopathy; N17.0 Acute kidney failure with tubular necrosis; I50.21 Acute systolic (congestive) heart failure; J69.0 Pneumonitis due to inhalation of food and vomit; G93.1 Anoxic brain damage, not elsewhere classified; E44.0 Moderate protein-calorie malnutrition; E87.2 Acidosis; J44.0 Chronic obstructive pulmonary disease with (acute) lower respiratory infection; Z68.1 Body mass index [BMI] 19.9 or less, adult; I42.9 Cardiomyopathy, unspecified; J96.22 Acute and chronic respiratory failure with hypercapnia; I46.9 Cardiac arrest, cause unspecified; D69.6 Thrombocytopenia, unspecified; D63.8 Anemia in other chronic diseases classified elsewhere; E87.5 Hyperkalemia; N18.3 Chronic kidney disease, stage 3 (moderate); E03.9 Hypothyroidism, unspecified; E78.5 Hyperlipidemia, unspecified; F32.9 Major depressive disorder, single episode, unspecified; F41.9 Anxiety disorder, unspecified; I25.10 Atherosclerotic heart disease of native coronary artery without angina pectoris; Z95.0 Presence of cardiac pacemaker; Z95.1 Presence of aortocoronary bypass graft; Z82.49 Family history of ischemic heart disease and other diseases of the circulatory system; Z79.899 Other long term (current) drug therapy; Z79.82 Long term (current) use of aspirin; J10.89 Influenza due to other identified influenza virus with other manifestations; Z03.818 Encounter for observation for suspected exposure to other biological agents ruled out
CPT/HCPCS: 31500; 36415; 36556; 36600; 51702; 70450; 71045; 71250; 80048; 80053; 80076; 82728; 82805; 83605; 83615; 83735; 83880; 84484; 85007; 85025; 85027; 85379; 85384; 85610; 85730; 86710; 87040; 87070; 87081; 87205; 87804; 87880; 93306; 94002; 94003; 95819; 96365; 96366; 96368; 99291; C9113; G0378; G9035; J0696; J2250; J2543; J3490; J7060